=== PATIENT | female | born 1985 | race Native Hawaiian/Other Pacific Islander ===

== ENCOUNTER 2020-04-01 12:30 | Emergency (ER) | payer MEDICAID, OTHER ==
[~2020-04-01] VITALS: Ht 175.3 cm; Wt 102.1 kg
[2020-04-01 13:21] LABS: Urine Bacteria NONE SEEN /hpf (None Seen); Urine Blood 2+ /uL (Negative); Urine Mucus FEW (None Seen); Urine Specific Gravity 1.028 (1.001-1.035); Urine WBC 22 /hpf (0 - 5)
[2020-04-01 13:30] LABS: Basophils # (auto) 0.1 10 ^3/uL (0-0.2); Eosinophils # (auto) 0.2 10 ^3/uL (0-0.8); Monocytes # (auto) 0.5 10 ^3/uL (0-1.3); Neutrophils # (auto) 4.7 10 ^3/uL (1.6-8.6); Nucleated Red Blood Cells % 0.1 %
[2020-04-01 13:32] LABS: Basophils % (auto) 0.8 % (0.0-2.0); Eosinophils % (auto) 2.8 % (0.0-7.0); Hematocrit 44.4 % (36.0-46.0); Mean Corpuscular Hemoglobin 23.4 pg (28.0-32.0); Mean Corpuscular Hgb Conc. 31.6 g/dL (32.0-36.0); Mean Corpuscular Volume 74.3 fL (80.0-100.0); Monocytes % (auto) 7.6 % (0.0-12.0); Neutrophils % (auto) 73.8 % (37.0-80.0); Platelet Count (auto) 477 10^3/uL (140-450); Red Blood Cells 5.97 10^6/uL (4.0-5.20); Red Cell Distribution Width 15.3 % (11.8-14.3); White Blood Cell 6.4 10^3/uL (4.4-10.8)
[2020-04-01 13:45] LABS: Alanine Aminotransferase 36 U/L (13-56); Albumin 3.6 g/dL (3.4-5.0); Anion Gap 6 (5-15); Aspartate Aminotransferase 25 U/L (15-37); BUN/Creatinine Ratio 12.8; Blood Urea Nitrogen 12 mg/dL (7-18); Calcium 8.4 mg/dL (8.5-10.1); Carbon Dioxide 27 mmol/L (21-32); Chloride 103 mmol/L (98-107); GFR African American 88 mL/min; GFR Non-African American 73 mL/min; Glucose 159 mg/dL (74-106); Magnesium 2.1 mg/dL (1.6-2.6); Potassium 3.8 mmol/L (3.5-5.1); Sodium 136 mmol/L (136-145)
[2020-04-01 13:50] LABS: Alkaline Phosphatase 114 U/L (45-117); Bilirubin, Total 0.5 mg/dL (0.2-1.0); Total Protein 8.2 g/dL (6.4-8.2)
[2020-04-01 15:42] VITALS: BP 149/88
== END 2020-04-01 15:55 | disposition home or self-care (01) ==
LOC: ER 12:30
DX: R00.2 Palpitations (principal); J20.9 Acute bronchitis, unspecified; F41.9 Anxiety disorder, unspecified; R06.4 Hyperventilation; Z32.02 Encounter for pregnancy test, result negative
CPT/HCPCS: 36415; 71046; 80053; 81001; 81025; 83735; 84443; 84484; 85025; 93005

== ENCOUNTER 2021-02-18 17:25 | Emergency (ER) | payer MEDICAID ==
[~2021-02-18] VITALS: Ht 172.7 cm; Wt 131.5 kg
[2021-02-18 21:45] VITALS: BP 150/100
== END 2021-02-18 23:08 | disposition home or self-care (01) ==
LOC: ER 17:25
DX: J20.9 Acute bronchitis, unspecified (principal); I10 Essential (primary) hypertension; J45.909 Unspecified asthma, uncomplicated; Z20.822 Contact with and (suspected) exposure to COVID-19
CPT/HCPCS: 36415; 71046; 81025; 87426

== ENCOUNTER 2021-11-18 17:28 | Inpatient (IN) | payer MEDICAID ==
[~2021-11-18] VITALS: Ht 175.3 cm; Wt 126.0 kg
[2021-11-18 19:36] LABS: Basophils # (auto) 0.1 10 ^3/uL (0-0.2); White Blood Cell 8.9 10^3/uL (4.4-10.8)
[2021-11-18 19:37] LABS: Albumin 3.3 g/dL (3.4-5.0); Calcium 8.9 mg/dL (8.5-10.1); Potassium 3.8 mmol/L (3.5-5.1)
[2021-11-18 19:38] LABS: Basophils % (auto) 0.7 % (0.0-2.0); Eosinophils # (auto) 0.2 10 ^3/uL (0-0.8); Eosinophils % (auto) 1.7 % (0.0-7.0); Hematocrit 23.4 % (36.0-46.0); Hemoglobin 7.2 g/dL (12.2-16.2); Lymphocytes # (auto) 1.3 10 ^3/uL (0.4-5.4); Lymphocytes % (auto) 14.4 % (10.0-50.0); Mean Corpuscular Hemoglobin 22.3 pg (28.0-32.0); Mean Corpuscular Hgb Conc. 30.7 g/dL (32.0-36.0); Mean Corpuscular Volume 72.7 fL (80.0-100.0); Monocytes # (auto) 0.6 10 ^3/uL (0-1.3); Monocytes % (auto) 6.2 % (0.0-12.0); Neutrophils # (auto) 6.9 10 ^3/uL (1.6-8.6); Nucleated Red Blood Cells % 0.9 %; Red Blood Cells 3.22 10^6/uL (4.0-5.20)
[2021-11-18 19:39] LABS: BUN/Creatinine Ratio 11.1; Red Cell Distribution Width 25.9 % (11.8-14.3)
[2021-11-18 19:43] LABS: Bilirubin, Total 0.4 mg/dL (0.2-1.0); Total Protein 6.9 g/dL (6.4-8.2)
[2021-11-18] MEDS ORDERED: SODIUM CHLORIDE 0.9% 1,000 ML IV SCH (22:45)
[2021-11-18] MEDS ORDERED: HYDROcodone-ACET 5/325MG TAB PO PRN (22:45)
[2021-11-18] MEDS ORDERED: ONDANSETRON HCL 4 MG/2 ML VIAL IV PRN (22:45)
[2021-11-18] MEDS ORDERED: DOCUSATE SOD 100 MG CAP PO PRN (22:45)
[2021-11-18] MEDS ORDERED: ACETAMINOPHEN 325 MG TAB PO PRN (22:45)
[2021-11-18] MEDS ORDERED: NITROGLYCERIN 0.4 MG SL TAB SL PRN (23:45)
[2021-11-18] MEDS ORDERED: MORPHINE SULFATE INJECTION 2 MG/ML SYRG IV PRN (23:45)
[2021-11-19] VITALS (11 sets, daily range): BP systolic 97–147; BP diastolic 61–85
[2021-11-19] MEDS ORDERED: ACET-1156 PO (02:27)
[2021-11-19] MEDS ORDERED: FERR28TA2 PO (02:27)
[2021-11-19 07:03] LABS: Calcium 8.5 mg/dL (8.5-10.1); Potassium 3.9 mmol/L (3.5-5.1)
[2021-11-19 07:05] LABS: BUN/Creatinine Ratio 12.8
[2021-11-19 07:07] LABS: Bilirubin, Total 0.3 mg/dL (0.2-1.0); Total Protein 6.4 g/dL (6.4-8.2)
[2021-11-19 07:19] LABS: Basophils # (auto) 0 10 ^3/uL (0-0.2); Eosinophils # (auto) 0.2 10 ^3/uL (0-0.8); Lymphocytes # (auto) 1.3 10 ^3/uL (0.4-5.4); Monocytes # (auto) 0.6 10 ^3/uL (0-1.3); Neutrophils # (auto) 5.3 10 ^3/uL (1.6-8.6); Nucleated Red Blood Cells % 0.6 %
[2021-11-19 07:25] LABS: Basophils % (auto) 0.4 % (0.0-2.0); Eosinophils % (auto) 2.1 % (0.0-7.0); Hematocrit 21.3 % (36.0-46.0); Lymphocytes % (auto) 17.2 % (10.0-50.0); Mean Corpuscular Hemoglobin 22.3 pg (28.0-32.0); Mean Corpuscular Hgb Conc. 30.8 g/dL (32.0-36.0); Monocytes % (auto) 7.6 % (0.0-12.0); Neutrophils % (auto) 72.7 % (37.0-80.0); Red Blood Cells 2.94 10^6/uL (4.0-5.20); White Blood Cell 7.3 10^3/uL (4.4-10.8)
[2021-11-19 08:10] LABS: Hemoglobin 6.6 g/dL (12.2-16.2)
[2021-11-19 08:11] LABS: Mean Corpuscular Volume 72.2 fL (80.0-100.0); Red Cell Distribution Width 24.6 % (11.8-14.3)
[2021-11-19] MEDS ORDERED: ENOXAPARIN SOD 40 MG/0.4 ML SYRINGE SC SCH (10:00)
[2021-11-19] MEDS ORDERED: FAMOTIDINE (10MG/ML) 2ML VL IV SCH (10:00)
[2021-11-19 18:13] LABS: Hematocrit 24.4 % (36.0-46.0); Hemoglobin 7.5 g/dL (12.2-16.2)
== END 2021-11-19 19:00 | disposition left against medical advice (07) | DRG 532 ==
LOC: ER 17:36 → TELE-WESTW 23:43
PROVIDERS: ADMIT Nurse Practitioner Family; ATTEND Family Medicine
PROC: 30233N1 Transfusion of Nonautologous Red Blood Cells into Peripheral Vein, Percutaneous Approach (ICD-10-PCS; principal; 2021-11-19)
DX: N93.9 Abnormal uterine and vaginal bleeding, unspecified (principal); E88.09 Other disorders of plasma-protein metabolism, not elsewhere classified; E66.01 Morbid (severe) obesity due to excess calories; D64.9 Anemia, unspecified; D75.839 Thrombocytosis, unspecified; I10 Essential (primary) hypertension; J45.909 Unspecified asthma, uncomplicated; Z20.822 Contact with and (suspected) exposure to COVID-19; Z53.29 Procedure and treatment not carried out because of patient's decision for other reasons; N92.0 Excessive and frequent menstruation with regular cycle; Z68.41 Body mass index [BMI] 40.0-44.9, adult
CPT/HCPCS: 36415; 76830; 76856; 80053; 81025; 83036; 84484; 84702; 85014; 85018; 85025; 86850; 86900; 86901; 86920; 87426; 96360; G0378; J3490

== ENCOUNTER 2021-12-14 22:44 | Emergency (ER) | payer MEDICAID ==
[~2021-12-14] VITALS: Ht 175.3 cm; Wt 134.7 kg
[~2021-12-14 22:44] MED LIST: ACET-1156 PO; FERR28TA2 PO
[2021-12-14 23:48] LABS: Basophils # (auto) 0.1 10 ^3/uL (0-0.2); Eosinophils # (auto) 0.2 10 ^3/uL (0-0.8); Lymphocytes # (auto) 1.3 10 ^3/uL (0.4-5.4); Monocytes # (auto) 0.8 10 ^3/uL (0-1.3); White Blood Cell 9.7 10^3/uL (4.4-10.8)
[2021-12-14 23:54] LABS: Basophils % (auto) 0.9 % (0.0-2.0); Eosinophils % (auto) 1.5 % (0.0-7.0); Hematocrit 22.1 % (36.0-46.0); Lymphocytes % (auto) 13.2 % (10.0-50.0); Mean Corpuscular Hemoglobin 22.2 pg (28.0-32.0); Mean Corpuscular Hgb Conc. 31.6 g/dL (32.0-36.0); Mean Corpuscular Volume 70.1 fL (80.0-100.0); Monocytes % (auto) 7.8 % (0.0-12.0); Neutrophils # (auto) 7.5 10 ^3/uL (1.6-8.6); Neutrophils % (auto) 76.6 % (37.0-80.0); Nucleated Red Blood Cells % 0.6 %; Red Blood Cells 3.15 10^6/uL (4.0-5.20)
[2021-12-14 23:58] LABS: Red Cell Distribution Width 21.6 % (11.8-14.3)
[2021-12-15 00:06] LABS: Albumin 3.2 g/dL (3.4-5.0); Calcium 8.7 mg/dL (8.5-10.1); Potassium 3.9 mmol/L (3.5-5.1)
[2021-12-15 00:09] LABS: Bilirubin, Total 0.2 mg/dL (0.2-1.0); Total Protein 6.7 g/dL (6.4-8.2)
[2021-12-15] MEDS ORDERED: TRANEXAMIC ACID 1,000 MG in SODIUM CHL 0.9% 100 ML IV ONE (01:00)
[2021-12-15 01:40] VITALS: BP 116/68
[2021-12-15 01:55] VITALS: BP 112/65
[2021-12-15] MEDS ORDERED: TRANEXAMIC ACID 10 ML ONE (02:03)
[2021-12-15 02:35] VITALS: BP 95/55
[2021-12-15 03:42] VITALS: BP 131/77
[2021-12-15 04:00] VITALS: BP 131/77
[2021-12-15] MEDS ORDERED: ONDANSETRON ODT 4 MG TAB PO ONE (04:30)
== END 2021-12-15 04:36 | disposition home or self-care (01) ==
LOC: EDBD 22:44 → ER 22:46
DX: N92.1 Excessive and frequent menstruation with irregular cycle (principal); D64.9 Anemia, unspecified; J45.909 Unspecified asthma, uncomplicated; I10 Essential (primary) hypertension
CPT/HCPCS: 36415; 36430; 80053; 84702; 85025; 86850; 86900; 86901; 86920; 96365; 99285; P9016; Q0162

== ENCOUNTER 2021-12-16 02:00 | Emergency (ER) | payer MEDICAID ==
[~2021-12-16] VITALS: Ht 175.3 cm; Wt 134.7 kg
[2021-12-16 03:28] LABS: Eosinophils # (auto) 0.2 10 ^3/uL (0-0.8); Hematocrit 19.3 % (36.0-46.0); Mean Corpuscular Volume 73.5 fL (80.0-100.0); Nucleated Red Blood Cells % 0.9 %
[2021-12-16 03:30] LABS: Basophils # (auto) 0.1 10 ^3/uL (0-0.2); Basophils % (auto) 0.7 % (0.0-2.0); Eosinophils % (auto) 1.6 % (0.0-7.0); Lymphocytes # (auto) 1.7 10 ^3/uL (0.4-5.4); Lymphocytes % (auto) 15.2 % (10.0-50.0); Mean Corpuscular Hemoglobin 22.7 pg (28.0-32.0); Mean Corpuscular Hgb Conc. 30.9 g/dL (32.0-36.0); Monocytes # (auto) 0.8 10 ^3/uL (0-1.3); Monocytes % (auto) 7.8 % (0.0-12.0); Neutrophils # (auto) 8.1 10 ^3/uL (1.6-8.6); Neutrophils % (auto) 74.7 % (37.0-80.0); Red Blood Cells 2.63 10^6/uL (4.0-5.20); White Blood Cell 10.9 10^3/uL (4.4-10.8)
[2021-12-16 03:45] LABS: Alanine Aminotransferase 13 U/L (13-56); Albumin 2.9 g/dL (3.4-5.0); Anion Gap 7 (5-15); Aspartate Aminotransferase 9 U/L (15-37); BUN/Creatinine Ratio 16.3; Blood Urea Nitrogen 16 mg/dL (7-18); Carbon Dioxide 24 mmol/L (21-32); Chloride 107 mmol/L (98-107); GFR African American 83 mL/min; GFR Non-African American 69 mL/min; Glucose 160 mg/dL (74-106); Potassium 3.7 mmol/L (3.5-5.1); Sodium 138 mmol/L (136-145)
[2021-12-16 03:50] LABS: Alkaline Phosphatase 50 U/L (45-117); Bilirubin, Total 0.2 mg/dL (0.2-1.0)
[2021-12-16 06:05] VITALS: BP 102/62
[2021-12-16 10:45] LABS: Urine Bacteria FEW /hpf (None Seen); Urine Blood 3+ /uL (Negative); Urine Mucus FEW (None Seen); Urine Specific Gravity 1.028 (1.001-1.035); Urine WBC 1 /hpf (0 - 5)
[2021-12-16 13:20] VITALS: BP 110/60
== END 2021-12-16 13:20 | disposition home or self-care (01) ==
LOC: EDBD 02:00 → EDSEX 02:00 → ER 02:00
DX: D64.9 Anemia, unspecified (principal); N92.1 Excessive and frequent menstruation with irregular cycle
CPT/HCPCS: 36415; 36430; 71045; 80053; 81001; 84484; 85025; 86850; 86900; 86901; 86920; 93005; 99285; P9016